=== PATIENT | female | born 1955 | race Caucasian/White ===

== ENCOUNTER 2021-05-18 22:23 | Inpatient (IN) | payer OTHER ==
[~2021-05-18] VITALS: Ht 152.4 cm; Wt 60.8 kg
[~2021-05-18 22:23] MED LIST: HYDROCODON-ACE1 EAC4 PO; PREDNISONE 10 M10 MG PO; ULTRAM50 MG PO
[2021-05-18 23:19] LABS: RED BLOOD COUNT 4.73 M/UL (4.00-5.10); WHITE BLOOD COUNT 12.5 K/UL (4.5-11.0)
[2021-05-19] MEDS ORDERED: BUMETANIDE2 MG PO (12:12)
[2021-05-19] MEDS ORDERED: LIORESAL TAB 1010 MG PO (12:12)
[2021-05-19] MEDS ORDERED: ZYRTEC10 MG PO (12:13)
[2021-05-19] MEDS ORDERED: PROTONIX 40 MG40 M1 PO (12:13)
[2021-05-19] MEDS ORDERED: JANUMET 50-1,01 EACH PO (12:13)
[2021-05-19] MEDS ORDERED: ZAROXOLYN/DIUL2.5 MG PO (12:14)
[2021-05-19] MEDS ORDERED: ULTRAM50 MG PO (12:14)
[2021-05-19] MEDS ORDERED: FLONASE ALLER15.8 ML (12:15)
[2021-05-19] MEDS ORDERED: BUSPAR 10MG10 MG PO (12:15)
[2021-05-19] MEDS ORDERED: LANTUS SOL100 UNIT/1 SC (13:04)
[2021-05-19] MEDS ORDERED: AZELASTINE137 MCG/0. (13:05)
[2021-05-19] MEDS ORDERED: BACTROBAN OINT22 GM TOP (13:05)
[2021-05-19] MEDS ORDERED: VITAMIN C500 M2 PO (13:06)
[2021-05-19] MEDS ORDERED: MULTIVITAMIN1 EACH PO (13:06)
[2021-05-19] MEDS ORDERED: VITAMIN D325 MCG PO (13:06)
[2021-05-19] MEDS ORDERED: CALCIUM500 M1 PO (13:07)
[2021-05-20 06:37] LABS: HEMOGLOBIN 10.2 gm/dl (12.3-15.3); RED BLOOD COUNT 3.67 M/UL (4.00-5.10); WHITE BLOOD COUNT 10.8 K/UL (4.5-11.0)
[2021-05-22 05:49] LABS: HEMOGLOBIN 10.8 gm/dl (12.3-15.3); RED BLOOD COUNT 3.87 M/UL (4.00-5.10); WHITE BLOOD COUNT 12.1 K/UL (4.5-11.0)
[2021-05-22 06:03] LABS: BUN/CREATININE RATIO 18 (0-10)
--- NOTE | 2021-05-23 00:52 | NUR ---
PT SATS 84% ON MAXED OUT ARIVO. NOTIFIED DR ORTIZ. RECIEVED ORDERS. DR ORTIZ ON FLOOR TO TALK WITH PATIENT. WILL CONTINUE TO MONITOR.
--- NOTE | 2021-05-23 01:12 | NUR ---
DR ORTIZ ON FLOOR SPEAKING WITH PATIENT AND PT'S SPOUSE COSung ROBERTSON. PT IS REFUSING TO BE INTUBATED AND HER AGREES WITH HER WISHES. WILL CONTINUE TO MONITOR.
[2021-05-23 06:58] LABS: HEMOGLOBIN 10.9 gm/dl (12.3-15.3); RED BLOOD COUNT 3.98 M/UL (4.00-5.10)
[2021-05-23 08:01] LABS: WHITE BLOOD COUNT 15.7 K/UL (4.5-11.0)
[2021-05-24 08:31] LABS: HEMOGLOBIN 11.5 gm/dl (12.3-15.3); RED BLOOD COUNT 4.14 M/UL (4.00-5.10); WHITE BLOOD COUNT 16.3 K/UL (4.5-11.0)
[2021-05-25 07:26] LABS: HEMOGLOBIN 11.1 gm/dl (12.3-15.3); RED BLOOD COUNT 4.03 M/UL (4.00-5.10); WHITE BLOOD COUNT 19.9 K/UL (4.5-11.0)
[2021-05-26 06:44] LABS: HEMOGLOBIN 10.6 gm/dl (12.3-15.3); RED BLOOD COUNT 3.75 M/UL (4.00-5.10); WHITE BLOOD COUNT 18.6 K/UL (4.5-11.0)
[2021-05-26 06:59] LABS: BUN/CREATININE RATIO 17 (0-10)
[2021-05-27 06:39] LABS: HEMOGLOBIN 10.8 gm/dl (12.3-15.3); RED BLOOD COUNT 3.72 M/UL (4.00-5.10); WHITE BLOOD COUNT 19.4 K/UL (4.5-11.0)
[2021-05-27 07:00] LABS: BUN/CREATININE RATIO 17 (0-10)
--- NOTE | 2021-05-28 06:12 | NUR ---
pt o2 dropped to 82 notified respitaroy,pt denies increase in SOA, pt also refused bipap, pt repositioned placed on nonrebreather pt o2 up to 87
[2021-05-28 07:52] LABS: HEMOGLOBIN 11.3 gm/dl (12.3-15.3); RED BLOOD COUNT 3.93 M/UL (4.00-5.10)
[2021-05-28 07:54] LABS: WHITE BLOOD COUNT 26.7 K/UL (4.5-11.0)
--- NOTE | 2021-05-28 10:24 | NUR ---
GOT REPORT ON PATIENT THIS AM, HER O2 SAT WAS IN THE MID-60S, PATIENT REFUSES TO PUT ON BIPAP. RT CALLED FOR BREATHING TREATMENT, RT ARRIVES, O2 SAT STILL IN MID-60S, BUT PATIENT WILL NOT COMPLETE BREATHING TREATMENT AND SAYS HER HEAD IS HURTING. EDUCATION TO PATIENT REGARDING WHAT HAPPENS DURING HYPOXIA (HEADACHE, CONFUSION, DECLINE TO EVENTUAL ) PATIENT STILL REFUSES BIPAP. HOUSE NOTIFIED SO CAN COME VISIT PATIENT. ARRIVES, IS EDUCATED TO PATIENT CONDITION. HE AND SHE STILL REFUSE BIPAP TREATMENT. HOUSE COMES TO SPEAK TO PATIENT, RT COMES TO SPEAK TO PATIENT, I SPEAK TO PATIENT ( IS INCLUDED IN THIS EDUCATION) ABOUT THE EVENTUAL DECLINE TO THAT WILL OCCUR IF MORE AGGRESSIVE INTERVENTION IS NOT PERFORMED. MD ALY NOTIFIED, HE IS WELL AWARE OF PATIENT CONDITION. AND PATIENT DO NOT WANT BIPAP OR OTHER INTERVENTIONS REGARDLESS OF PATIENT STATUS AND HAVE BEEN THOROUGHLY EDUCATED ON OUTCOMES. PATIENT NOW WITH 02 SAT IN 50S, HAS BEEN ALERT AND ORIENTED X3 THIS WHOLE SHIFT SO FAR. STILL REFUSING INTERVENTION.
--- NOTE | 2021-05-28 14:32 | NUR ---
WENT INTO ROOM WITH MD TO DISCUSS TREATMENT OPTIONS WITH PATIENT AND HER . PATIENT AGREED TO TRY THE BIPAP AGAIN, CALLED RT AND HAD PATIENT PLACED BACK ON BIPAP AT APPROX 1315. IV LORAZEPAM ORDERED AND GIVEN BECAUSE PATIENT SAID BIPAP MADE HER ANXIOUS. WCTM CLOSELY.
[2021-05-29 06:37] LABS: HEMOGLOBIN 10.9 gm/dl (12.3-15.3); RED BLOOD COUNT 3.77 M/UL (4.00-5.10); WHITE BLOOD COUNT 20.4 K/UL (4.5-11.0)
[2021-05-30 04:30] LABS: HEMOGLOBIN 10.2 gm/dl (12.3-15.3); RED BLOOD COUNT 3.56 M/UL (4.00-5.10); WHITE BLOOD COUNT 18.6 K/UL (4.5-11.0)
[2021-05-30 04:56] LABS: BUN/CREATININE RATIO 31 (0-10)
[2021-05-31 07:04] LABS: HEMOGLOBIN 10.5 gm/dl (12.3-15.3); RED BLOOD COUNT 3.67 M/UL (4.00-5.10); WHITE BLOOD COUNT 17.4 K/UL (4.5-11.0)
[2021-05-31 07:23] LABS: BUN/CREATININE RATIO 36 (0-10)
[2021-06-01 03:52] LABS: HEMOGLOBIN 10.4 gm/dl (12.3-15.3); RED BLOOD COUNT 3.55 M/UL (4.00-5.10)
[2021-06-01 04:11] LABS: BUN/CREATININE RATIO 34 (0-10)
[2021-06-02 06:27] LABS: HEMOGLOBIN 10.3 gm/dl (12.3-15.3); RED BLOOD COUNT 3.59 M/UL (4.00-5.10)
[2021-06-02 06:31] LABS: WHITE BLOOD COUNT 16.3 K/UL (4.5-11.0)
[2021-06-02 07:01] LABS: BUN/CREATININE RATIO 42 (0-10)
[2021-06-03 06:52] LABS: HEMOGLOBIN 10.1 gm/dl (12.3-15.3); RED BLOOD COUNT 3.5 M/UL (4.00-5.10); WHITE BLOOD COUNT 17.5 K/UL (4.5-11.0)
[2021-06-03 07:18] LABS: BUN/CREATININE RATIO 31 (0-10)
[2021-06-04 07:34] LABS: HEMOGLOBIN 9.9 gm/dl (12.3-15.3); RED BLOOD COUNT 3.53 M/UL (4.00-5.10); WHITE BLOOD COUNT 21.2 K/UL (4.5-11.0)
[2021-06-04 07:40] LABS: BUN/CREATININE RATIO 32 (0-10)
[2021-06-05 06:38] LABS: HEMOGLOBIN 9.9 gm/dl (12.3-15.3); RED BLOOD COUNT 3.44 M/UL (4.00-5.10); WHITE BLOOD COUNT 19.7 K/UL (4.5-11.0)
[2021-06-05 07:00] LABS: BUN/CREATININE RATIO 51 (0-10)
--- NOTE | 2021-06-05 11:53 | NUR ---
PATIENT HYPOGLYCEMIC AND NAUSEOUS THIS AM, TREATED BOTH BUT SHE REFUSED HER AM MEDS. REFUSED BREAKFAST. WCTM CLOSELY.
[2021-06-06 10:14] LABS: HEMOGLOBIN 10.1 gm/dl (12.3-15.3); RED BLOOD COUNT 3.47 M/UL (4.00-5.10); WHITE BLOOD COUNT 20.3 K/UL (4.5-11.0)
[2021-06-06 10:33] LABS: BUN/CREATININE RATIO 32 (0-10)
--- NOTE | 2021-06-06 13:02 | NUR ---
PATIENT HAS BEEN UNABLE TO TOLERATE PO INTAKE OTHER THAN ICE CHIPS. SHE SEEMS TO BE HAVING A DIFFICULT TIME SWALLOWING. COULDN'T GIVE HER MEDICATIONS OTHER THAN HER MORNING STEROID. MADE AWARE.
--- NOTE | 2021-06-06 18:49 | NUR ---
I SPOKE WITH THE PATIENT'S THREE TIMES TODAY ABOUT HER CARE AND HER CONDITION. I EXPLAINED TO HIM THAT SHE IS CURRENTLY UNABLE TO EAT BUT THAT WE HAVE OFFERED HER BREAKFAST, LUNCH, AND DINNER AND PROVIDED HER WITH ICE CHIPS WHEN SHE DECLINED THE FOOD AND DRINK. I EXPLAINED TO HIM THAT WE CLEANED HER UP/BATHED HER AND CHANGED HER BED AND HAVE CHECKED ON HER FREQUENTLY. MD HAS BEEN NOTIFIED OF PATIENT CONDITION AND OF HER INABILITY/LACK OF DESIRE TO EAT OR TAKE HER MEDICATION. WCTM CLOSELY.
--- NOTE | 2021-06-07 10:12 | NUR ---
0956 CALLED [employer] ENGRAVER HAND RICKY TO ASK PERMISSION FOR TO BE BROUGHT INTO PT'S ROOM TO DISCUSS PLAN OF CARE WITH THE BOTH OF THEM PRESENT. INFORMED HER WHAT HAD HAPPENED WITH THE PT'S O2 SAT INTO THE 50-60'S ON AIRVO AND WHEN PLACED ON BIPAP PT DROPPED INTO THE 30'S ON HER O2 SAT. PT NOW ON 100% FIO2 UP FROM 85%.RICKY STATED THAT SHE WOULD CALL DR BUTCHER AND SARATH FOR PERMISSION TO BRING THE PT'S IN BECAUSE SHE IS COVID +
--- NOTE | 2021-06-07 10:18 | NUR ---
9275 RICKY STATED THAT SPOKE TO SARATH AND DR BUTCHER AND THEY APPROVED FOR THE PT'S TO COME FOR THE MEETING WITH DR ALY AND THE PT
[2021-06-07 15:34] LABS: BUN/CREATININE RATIO 28 (0-10)
--- NOTE | 2021-06-07 16:01 | NUR ---
1400 APPROX.- RT BROCK CAME IN ROOM TO SWITCH PATIENT OVER TO AIRVO SO SHE COULD EAT PER MD ORDER. SHORTLY AFTER SWITCHING, TELEMETRY CALLED TO TELL ME PATIENTS SATS WERE IN THE 60'S, BROCK WENT BACK IN TO PUT PT. BACK ON BIPAP. PATIENT WENT UNRESPONSIVE, AT THAT TIME STEPHANIE LEE RN, MYSELF, FLORENTINO BAEZ AND BROCK AT BEDSIDE. ONCE PATIENT WAS SECURED BACK ON BIPAP, PULSES BOUNDING, AND SATS RISING. PATIENT OPENS EYES. IN ROOM.
[2021-06-07 16:17] LABS: HEMOGLOBIN 8.8 gm/dl (12.3-15.3); WHITE BLOOD COUNT 20.1 K/UL (4.5-11.0)
[2021-06-07 16:23] LABS: RED BLOOD COUNT 3.05 M/UL (4.00-5.10)
[2021-06-08 05:59] LABS: HEMOGLOBIN 9.2 gm/dl (12.3-15.3); RED BLOOD COUNT 3.19 M/UL (4.00-5.10); WHITE BLOOD COUNT 25.2 K/UL (4.5-11.0)
[2021-06-08 06:24] LABS: BUN/CREATININE RATIO 28 (0-10)
[2021-06-09 07:27] LABS: HEMOGLOBIN 8.8 gm/dl (12.3-15.3); RED BLOOD COUNT 3.03 M/UL (4.00-5.10); WHITE BLOOD COUNT 29.1 K/UL (4.5-11.0)
[2021-06-09 07:43] LABS: BUN/CREATININE RATIO 36 (0-10)
--- NOTE | 2021-06-09 10:05 | NUR ---
NURSE TRIED ON 06/08 AT APPROXIMATELY 1000 AM TO TRANSITION PT FROM THE BIPAP TO THE ARIVO. PT IMMEDIATELY DESATED TO 75% AND PROCEEDED TO DESAT FURTHER TO 35% O2 SATURATION BEFORE BIPAP MASK COULD BE PLACED BACK INTO POSITION. PT RECOVERED FROM THIS, BUT MUST STAY ON 100% O2 BIPAP AT THIS TIME.
--- NOTE | 2021-06-09 17:55 | NUR ---
MD ORDERED TO USE NON-REBREATHER MASK WITH AIRVO PRN FOR O2 DESATURATION. PT IS CURRENTLY ONLY ON AIRVO AND SATURATION IS 92% WITHOUT THE NON-REBREATHER MASK.
[2021-06-10 06:32] LABS: HEMOGLOBIN 8.5 gm/dl (12.3-15.3); RED BLOOD COUNT 2.85 M/UL (4.00-5.10); WHITE BLOOD COUNT 28.9 K/UL (4.5-11.0)
[2021-06-11 09:01] LABS: HEMOGLOBIN 7.6 gm/dl (12.3-15.3); RED BLOOD COUNT 2.59 M/UL (4.00-5.10); WHITE BLOOD COUNT 21.9 K/UL (4.5-11.0)
[2021-06-12 06:44] LABS: RED BLOOD COUNT 2.67 M/UL (4.00-5.10); WHITE BLOOD COUNT 21.7 K/UL (4.5-11.0)
[2021-06-12 07:14] LABS: BUN/CREATININE RATIO 33 (0-10)
--- NOTE | 2021-06-12 15:18 | NUR ---
PTS IS AT BEDSIDE, WANTING TO GO HOME AND DO A FEW THINGS. ATTEMPTED TO STOP FAMILY MEMEBER BECAUSE DUE TO COVID, ANY COVID POS PT WITH FAMILY MEMEBERS ARE NOT ALLOWED TO LEAVE THE ROOM, STATES WE HAVE BEEN ALLOWING HIM TO COME AND GO HE PLEASE. CALLED DOCTOR JERMAIN, HE STATED THAT, THAT WAS CORRECT. NOIFIED DALE LUIS.
--- NOTE | 2021-06-12 15:52 | NUR ---
AT 1100: I ATTEMPTED TO ASK THE PT IF I COULD CLEAN HER MOUTH OUT, PT REFUSED. AT 1553: WENT IN WITH DOCTOR ALY TO TALK TO PT AND FAMILY MEMBER, FAMILY STATED THAT I WAS NOT TAKING CARE OF HER AND NOT GIVING HER ORAL CARE. I STATE THE PT REFUSED AND I WILL NOT GO AGAINST PTS WISHES. I OFFERED TO CLEAN HER MOUTH OUT AGAIN, PT REFUSED AND STATED "YOU PROMISED YOU WOULDNT GO AGAINST MY WISHES" I AGREED WITH HER AND LEFT THE ROOM WITH DOCTOR ALY
--- NOTE | 2021-06-12 16:13 | NUR ---
PT REFUSES TO ALLOW ME TO CHECK HER SUGAR LEVELS, DOCTOR AWARE
[2021-06-13 06:12] LABS: HEMOGLOBIN 8.3 gm/dl (12.3-15.3); RED BLOOD COUNT 2.75 M/UL (4.00-5.10); WHITE BLOOD COUNT 19.9 K/UL (4.5-11.0)
[2021-06-13 06:41] LABS: BUN/CREATININE RATIO 30 (0-10)
[2021-06-13 09:13] LABS: HBSAG SCREEN Negative (Negative); HEP A AB, IGM Negative (Negative); HEP B CORE AB, IGM Negative (Negative); HEP C VIRUS AB 0.1 (0.0-0.9)
--- NOTE | 2021-06-13 09:27 | NUR ---
PT REFUSED ALL ORAL MEDS, ATTEMPTED TO GIVE ORAL CARE AND PT REFUSED. I ASKED HER IF I GAVE HER THE SUPPLIES WOULD SHE DO IT HERSELF AND SHE STATED SHES NOT DOING IT. I WILL ATTEMPT AGAIN IN AN HOUR
[2021-06-14 07:30] LABS: HEMOGLOBIN 8.1 gm/dl (12.3-15.3); RED BLOOD COUNT 2.67 M/UL (4.00-5.10); WHITE BLOOD COUNT 22.3 K/UL (4.5-11.0)
[2021-06-14 10:01] LABS: BUN/CREATININE RATIO 24 (0-10)
== END 2021-06-14 18:35 | disposition expired | DRG 177 ==
LOC: ER1 22:23 → MED SURG 4 05-19 00:38 → CDU 05-19 00:38 → MED SURG 4 05-19 20:37
PROVIDERS: Internal Medicine; Physician Assistant; ADMIT Internal Medicine
PROC: 8E0ZXY6 Isolation (ICD-10-PCS; 2021-05-19)
PROC: XW033E5 Introduction of Remdesivir Anti-infective into Peripheral Vein, Percutaneous Approach, New Technology Group 5 (ICD-10-PCS; 2021-05-19)
PROC: 3E0333Z Introduction of Anti-inflammatory into Peripheral Vein, Percutaneous Approach (ICD-10-PCS; 2021-05-19)
PROC: 5A0955A Assistance with Respiratory Ventilation, Greater than 96 Consecutive Hours, High Flow/Velocity Cannula (ICD-10-PCS; 2021-05-21)
PROC: 5A12012 Performance of Cardiac Output, Single, Manual (ICD-10-PCS; principal; 2021-05-23)
PROC: B24BZZ4 Ultrasonography of Heart with Aorta, Transesophageal (ICD-10-PCS; 2021-05-24)
PROC: 5A09557 Assistance with Respiratory Ventilation, Greater than 96 Consecutive Hours, Continuous Positive Airway Pressure (ICD-10-PCS; 2021-05-28)
DX: U07.1 COVID-19 (principal); J96.01 Acute respiratory failure with hypoxia; Z66 Do not resuscitate; E43 Unspecified severe protein-calorie malnutrition; J15.9 Unspecified bacterial pneumonia; J12.82 Pneumonia due to coronavirus disease 2019; N17.9 Acute kidney failure, unspecified; E87.4 Mixed disorder of acid-base balance; N30.00 Acute cystitis without hematuria; E87.0 Hyperosmolality and hypernatremia; E87.1 Hypo-osmolality and hyponatremia; I42.9 Cardiomyopathy, unspecified; K76.0 Fatty (change of) liver, not elsewhere classified; E11.22 Type 2 diabetes mellitus with diabetic chronic kidney disease; E88.09 Other disorders of plasma-protein metabolism, not elsewhere classified; K21.9 Gastro-esophageal reflux disease without esophagitis; E86.0 Dehydration; D75.839 Thrombocytosis, unspecified; C44.90 Unspecified malignant neoplasm of skin, unspecified; R53.81 Other malaise; B96.5 Pseudomonas (aeruginosa) (mallei) (pseudomallei) as the cause of diseases classified elsewhere; E83.51 Hypocalcemia; L89.156 Pressure-induced deep tissue damage of sacral region; E55.9 Vitamin D deficiency, unspecified; I07.1 Rheumatic tricuspid insufficiency; I27.20 Pulmonary hypertension, unspecified; I12.9 Hypertensive chronic kidney disease with stage 1 through stage 4 chronic kidney disease, or unspecified chronic kidney disease; E87.6 Hypokalemia; K29.70 Gastritis, unspecified, without bleeding; W18.30XA Fall on same level, unspecified, initial encounter; Z79.4 Long term (current) use of insulin; Z90.49 Acquired absence of other specified parts of digestive tract; Z90.710 Acquired absence of both cervix and uterus; Z88.8 Allergy status to other drugs, medicaments and biological substances; Z91.041 Radiographic dye allergy status; Z74.01 Bed confinement status; Z68.25 Body mass index [BMI] 25.0-25.9, adult; Z91.14 Patient's other noncompliance with medication regimen
CPT/HCPCS: ECHO; 36415; 36600; 70450; 71045; 71250; 72125; 72128; 72131; 73522; 76705; 78580; 80048; 80053; 80074; 81001; 82550; 82553; 82803; 82962; 82977; 83735; 83874; 83880; 84100; 84132; 84295; 84484; 85025; 85027; 85049; 85610; 85730; 86140; 87040; 87077; 87081; 87086; 87186; 92610; 93005; 93306; 94640; 94660; 94760; 97110-GP-CQ; 97162; 97530-GP-CQ; 99285; A9540; J0360; J0696; J1100; J1120; J1644; J1650; J1940; J2020; J2060; J2185; J2270; J2405; J2543; J3480; J7030; J7070; Q9967; U0002